=== PATIENT | female | born 1985 | race Two or more races ===

== ENCOUNTER 2018-11-13 07:08 | Emergency (ER) | payer OTHER ==
[2018-11-13 07:09] VITALS: O2SAT 98
[2018-11-13 07:14] VITALS: RESP 18; TEMP 97.6
[2018-11-13] MEDS ORDERED: LIDOCAINE HCL 1% MPF 30 SOL ONE (07:22)
[2018-11-13 07:24] VITALS: BP 116/74; PULSE 80
[2018-11-13] MEDS ORDERED: LIDOCAINE HCL 1% MDV 50 ML SOL SC ONE (07:50)
== END 2018-11-13 08:20 | disposition home or self-care (01) | DRG 605 ==
LOC: ED 07:08
DX: S61.012A Laceration without foreign body of left thumb without damage to nail, initial encounter (principal); W45.8XXA Other foreign body or object entering through skin, initial encounter
CPT/HCPCS: 12002; 99283; A6402; J2001